=== PATIENT | male | born 1970 | race Caucasian/White ===

== ENCOUNTER 2018-06-29 16:28 | Emergency (ER) | payer MEDICAID ==
[~2018-06-29] VITALS: Ht 162.6 cm; Wt 73.3 kg
[~2018-06-29 16:28] MED LIST: CEPH-443 PO; ONDA4TAB14 PO; [UNRECOGNIZED DRUG - REMARK]
[2018-06-29 16:30] VITALS: Ht 162.6 cm; Wt 73.3 kg
--- NOTE | 2018-06-29 20:17 | ERD ---
ER Documentation Chief Complaint Chief Complaint R ankle pain/diff walking while at work; twisted the foot HPI 48-year-old male, presents to the emergency department, complaining of right ankle pain after a forced inversion of the foot that occurred approximately at 11 AM while the patient was doing some gardening. ROS All systems reviewed and are negative except as per history of present illness. Medications Home Meds Active Scripts Acetaminophen* (Tylenol*) 325 Mg Tablet, 2 TAB PO Q8 PRN for PAIN AND OR ELEVATED TEMP, #20 TAB Prov:LOKESH PEDROZA MD 06/29/18 Ibuprofen* (Motrin*) 400 Mg Tab, 400 MG PO Q8, #15 TAB Prov:LOKESH PEDROZA MD 06/29/18 Ondansetron (Ondansetron Odt) 4 Mg Tab.rapdis, 4 MG PO Q6H PRN for NAUSEA AND/OR VOMITING, #10 TAB Prov:GABE GAFFNEY PA-C 03/29/16 Cephalexin* (Keflex*) 500 Mg Capsule, 500 MG PO QID for 7 Days, CAP Prov:NORM PATEL 11/19/15 Reported Medications [Unk Names] No Conflict Check 02/11/12 Allergies Allergies: Coded Allergies: No Known Drug Allergies (Verified Allergy, Unknown, 06/29/18) PMhx/Soc History of Surgery: No Anesthesia Reaction: No Hx Neurological Disorder: No Hx Respiratory Disorders: No Hx Cardiac Disorders: No Hx Psychiatric Problems: No Hx Miscellaneous Medical Probl: No Hx Alcohol Use: Yes (OCCASSIONAL) Hx Substance Use: No Hx Tobacco Use: No Smoking Status: Never smoker Physical Exam Vitals Vital Signs Date Temp Pulse Resp B/P (MAP) Pulse Ox O2 O2 Flow FiO2 Time Delivery Rate 06/29/18 98.6 74 20 172/84 98 16:30 (113) Physical Exam Const: No acute distress Head: Atraumatic Eyes: Normal Conjunctiva ENT: Normal External Ears, Nose and Mouth. Neck: Full range of motion. No meningismus. Resp: Clear to auscultation bilaterally Cardio: Regular rate and rhythm, no murmurs Abd: Soft, non tender, non distended. Normal bowel sounds Skin: No petechiae or rashes Back: No midline or flank tenderness Ext: Right ankle: Lateral malleolar edema and tenderness to palpation, no gross deformity, no crepitus, full passive range of motion, distal neurovascular exam intact. Neur: Awake and alert Psych: Normal Mood and Affect Procedures/MDM Acute right ankle pain: no red flags. Differential diagnosis include but not limited to: Ankle sprain/strain, ligament injury, arthritis; low suspicion for fracture, dislocation, septic arthritis. Neurovascular exam grossly intact. no clinical findings suggestive of acute infectious process, no deformity, no rashes. Pertinent Data: X-rays: No fracture or dislocation Physical examination and clinical presentation consistent most likely with ankle sprain. During the ED course the patient received treatment with short leg posterior splint and crutches presenting overall improvement of the symptoms. Results and clinical impression discussed with patient who agrees with management. The patient is stable to be treated outpatient and will be discharged home with recommendations for ice, rest and partial immobilization. NSAIDs 3 times daily for 5 days and close monitoring. The patient was instructed to follow up with the primary care provider in the next 48h. If symptoms persist, worsen or new symptoms develop, then patient should return to the ED immediately. Instructions explained and given to patient with acknowledgment and demonstrated understanding. Disclaimer: Inadvertent spelling and grammatical errors are likely due to EHR/dictation software use and do not reflect on the overall quality of patient care. Also, please note that the electronic time recorded on this note does not necessarily reflect the actual time of the patient encounter. Departure Diagnosis: Primary Impression: Right ankle sprain Condition: Stable Additional Instructions: Muchas nikki por [facility] para le servicio. Esperamos que en le visita a la miguelito de emergencia le problema medico haya sido solucionado y que se sienta mucho mejor. Para estar seguros que le mejoria sigue en proceso, le pedimos el favor de hacer jodi arden de seguimiento medico con le doctor primario en los proximos 2-4 [place]. Lleve con usted estos documentos y las medicinas recetadas. Si sparkle sintomas empeoran, NO SE ESPERE, por favor regrese a miguelito de emergencia INMEDIATAMENTE. En sulaiman que usted no tenga un mdico de atencin primaria: Llame al mdico o clnica comunitaria de referencia que aparece abajo harvey las horas de consultorio para hacer jodi arden para que le vean. CLINICAS: [facility] [phone] [facility] [phone] [facility] [phone] [place] [id number] [phone] [place] [phone] [facility]. [phone] LOKESH ROACH MD Jun 29, 2018 20:17
[2018-06-29] MEDS ORDERED: IBUP-1561 PO (21:46)
[2018-06-29] MEDS ORDERED: ACET325T33 PO (21:46)
[2018-06-29 22:20] VITALS: BP 142/80; PULSE 70; RESP 20
== END 2018-06-29 22:20 | disposition home or self-care (01) ==
LOC: FTE 16:28
DX: S93.401A Sprain of unspecified ligament of right ankle, initial encounter (principal); X50.1XXA Overexertion from prolonged static or awkward postures, initial encounter; Y92.9 Unspecified place or not applicable
CPT/HCPCS: 29515; 73610; L3260; Z7502